=== PATIENT | male | born 1950 | race Caucasian/White ===

== ENCOUNTER 2019-12-16 09:40 | Day surgery (SDC) | payer OTHER ==
[2019-12-13 13:14] LABS: BASOPHILS % (AUTO) 0.5 % (0.0-5.0); EOSINOPHILS % (AUTO) 1.9 % (0.0-8.0); HEMATOCRIT 43.7 % (42-54); LYMPHOCYTES % (AUTO) 26.1 % (21.0-51.0); MEAN CORPUSCULAR HEMOGLOBIN 28.5 pg (27.0-33.0); MEAN CORPUSCULAR HGB CONC 32.5 g/dL (32.0-36.0); MEAN CORPUSCULAR VOLUME 87.6 fL (79-99); MONOCYTES % (AUTO) 8.4 % (3.0-13.0); NEUTROPHILS % (AUTO) 62.9 % (40.0-77.0); PLATELET COUNT (AUTO) 173 K/uL (130-400); RED BLOOD CELL COUNT(AUTO) 4.99 MIL/uL (4.50-6.20); RED CELL DISTRIBUTION WIDTH 13.8 % (11.0-15.5); WHITE BLOOD COUNT (AUTO) 8.6 K/uL (4.8-10.8)
[2019-12-13 13:36] LABS: CREATININE 0.9 mg/dL (0.5-1.5); POTASSIUM 3.9 mmol/L (3.5-5.1)
[2019-12-13 14:35] VITALS: BP 156/80
[2019-12-16] VITALS (17 sets, daily range): BP systolic 100–125; BP diastolic 51–70
[~2019-12-16] VITALS: Ht 172.7 cm; Wt 95.5 kg
[2019-12-16] MEDS: CEFAZOLIN SODIUM 1 GM VIAL IVP SCH ×2 (06:00→14:55)
[~2019-12-16 09:40] MED LIST: ALBU2.5V2 IH; CHOL200016 PO; HYDR-4068 PO; MELO-108 PO; ROPI3TAB5 PO; TRAZ-187 PO; VITA0.4T9 PO
--- NOTE | 2019-12-16 10:04 | NUR ---
CONSULT: NOTIFIED YESIKA STAUFFER OF NPO STATUS: 12/15/19 @ 08:30 6 OUNCES OF COFFEE WITH SUGAR. NO ORDERS GIVEN, OK TO PROCEED WITH SURGERY.
[2019-12-16] MEDS ORDERED: LACTATED RINGERS 1000ML 1,000 ML IV ONE (10:23)
--- NOTE | 2019-12-16 10:25 | NUR ---
POTENTIAL FOR INFECTION: SHAVED RIGHT SHOULDER / RIGHT ARM PER FLASH MICHAELS, FOLLOWED BY WIPING WITH LEESA: 2% CHLORHEXIDINE GLUCONATE CLOTH PATIENTS PRE-OP SKIN PREP.
--- NOTE | 2019-12-16 10:31 | NUR ---
URINARY SYSTEM: PT HAS NEUROGENIC BLADDER. PT SELF CATHS OWN ABOUT 4 - 8 TIMES A DAY.
[2019-12-16] MEDS ORDERED: ASPI-555 PO (10:35)
[2019-12-16] MEDS ORDERED: CYAN250014 PO (10:35)
[2019-12-16] MEDS ORDERED: EPINEPHRINE 1 MG/ML 30ML VIAL IJ ONE (13:38)
[2019-12-16] MEDS ORDERED: LIDOCAINE PF 2% 5ML ABBOJECT ONE ×2 (13:47→17:11)
[2019-12-16] MEDS ORDERED: MIDAZOLAM HCL 1 MG/ML 2ML VIAL ONE (13:47)
[2019-12-16] MEDS ORDERED: PROPOFOL 10 MG/ML 20ML VIAL IV ONE (13:47)
[2019-12-16] MEDS ORDERED: GLYCOPYRROLATE 1 MG/5 ML SYRINGE ONE (13:47)
[2019-12-16] MEDS ORDERED: FENTANYL CITRATE PF 50 MCG/1 ML 2ML VIAL ONE (13:48)
[2019-12-16] MEDS ORDERED: NEOSTIGMINE 5MG/5ML SYR IV ONE (13:48)
[2019-12-16] MEDS ORDERED: ROCURONIUM 10MG/1ML SYR 10 MG/ML ML ONE (13:49)
[2019-12-16] MEDS ORDERED: DEXAMETHASONE SOD PHOSPHATE 10MG/ML 1ML VIAL ONE (14:44)
[2019-12-16] MEDS ORDERED: ONDANSETRON HCL 4 MG/2 ML VIAL ONE (14:44)
[2019-12-16] MEDS ORDERED: EPHEDRINE SULFATE 50 MG/ML AMPULE ONE (15:30)
[2019-12-16] MEDS ORDERED: KETOROLAC TROMETHAMINE 30MG/ML ONE (17:08)
[2019-12-16] MEDS ORDERED: MEPERIDINE-PF 25 MG/ML SYG ONE (17:18)
[2019-12-16] MEDS ORDERED: CEPH500B PO (17:41)
[2019-12-16] MEDS ORDERED: MELO-108 PO (17:46)
[2019-12-16] MEDS ORDERED: IPRATROPIUM/ALBUTEROL SULFATE 3 ML SOLUTION IH ONE (17:58)
--- NOTE | 2019-12-16 18:35 | NUR ---
post received patient from pacu, s/p right shoulder arthroscopy rotator cuff repair, 3 small dressings dry and intact, - opsite dressing intact, swelling to site. arm sling to right arm. neurovascular checks wnl. pt received nerve block to right shoulder. pt able to wiggle his right hand fingers. patient awake and alert, no distress noted. pt denied any pain or discomforts.
--- NOTE | 2019-12-16 19:15 | NUR ---
dc pt dc home via wc,no distress noted. pt denied any pain, sob or any other discomforts. pt accompanied by spouse. dc instructions given to pt spouse with rx x 2 , instructed on dr. delarosa post shoulder dc orders. photo copy of orders provided to both pt/spouse
== END 2019-12-16 19:15 | disposition home or self-care (01) ==
LOC: DAH 09:40
PROVIDERS: ATTEND Orthopaedic Surgery
DX: M75.41 Impingement syndrome of right shoulder (principal); M19.011 Primary osteoarthritis, right shoulder; M25.811 Other specified joint disorders, right shoulder; F17.210 Nicotine dependence, cigarettes, uncomplicated; I10 Essential (primary) hypertension; G89.29 Other chronic pain; E78.2 Mixed hyperlipidemia; M17.12 Unilateral primary osteoarthritis, left knee; Z96.652 Presence of left artificial knee joint; Z98.890 Other specified postprocedural states
CPT/HCPCS: 29824; 29826; 29827; 36415; 64415; 76942; 80048; 85025; 94640; A4213; A4215; A4221; A4222; A4223; A4565; A4600; A4649 ×6; A4930; A5120; A6204; C1713 ×3; G0168; J0171; J0690; J1100; J1885; J2001 ×2; J2175; J2250; J2405; J2704; J2710; J3010; J3490 ×2; J7030; J7120

== ENCOUNTER → 2021-03-19 | Outpatient (CLI) | payer OTHER ==
[~2021-03-19] VITALS: Ht 167.6 cm; Wt 106.9 kg
[~2021-03-19] MED LIST changes: +ASPI-556 PO; +CEFAZOLIN SODIUM 1 GM VIAL IVP SCH; +CEPH500B PO; +CYAN250014 PO; -VITA0.4T9 PO
[2021-03-19 10:01] LABS: BASOPHILS % (AUTO) 0.7 % (0.0-5.0); HEMATOCRIT 44.4 % (42-54); LYMPHOCYTES % (AUTO) 25.1 % (21.0-51.0); MEAN CORPUSCULAR HEMOGLOBIN 28.2 pg (27.0-33.0); MEAN CORPUSCULAR HGB CONC 32.4 g/dL (32.0-36.0); MEAN CORPUSCULAR VOLUME 87.1 fL (79-99); MONOCYTES % (AUTO) 9.8 % (3.0-13.0); NEUTROPHILS % (AUTO) 61.2 % (40.0-77.0); PLATELET COUNT (AUTO) 184 K/uL (130-400); WHITE BLOOD COUNT (AUTO) 8.4 K/uL (4.8-10.8)
[2021-03-19 10:25] LABS: CREATININE 1.1 mg/dL (0.5-1.5); POTASSIUM 4.2 mmol/L (3.5-5.1)
[2021-03-19 12:02] LABS: INR 1.16 (0.85-1.15)
[2021-03-23 14:27] VITALS: BP 116/81
== END | disposition home or self-care (01) ==
LOC: EDSTATUS 09:00 → DAH 10:00 → EDSTATUS 03-24 09:00
PROVIDERS: ATTEND Orthopaedic Surgery
DX: Z01.812 Encounter for preprocedural laboratory examination (principal); Z20.822 Contact with and (suspected) exposure to COVID-19; M24.561 Contracture, right knee; I49.1 Atrial premature depolarization
CPT/HCPCS: 36415; 80048; 85025; 85610; 87641; 93005; U0003

== ENCOUNTER 2021-10-04 11:00 | Inpatient (IN) | payer OTHER ==
[~2021-10-04] VITALS: Ht 170.2 cm; Wt 101.4 kg
[2021-10-04 10:20] LABS: BASOPHILS % (AUTO) 0.7 % (0.0-5.0); EOSINOPHILS % (AUTO) 2.4 % (0.0-8.0); LYMPHOCYTES % (AUTO) 31.8 % (21.0-51.0); MEAN CORPUSCULAR HEMOGLOBIN 28.3 pg (27.0-33.0); MEAN CORPUSCULAR HGB CONC 32.1 g/dL (32.0-36.0); MONOCYTES % (AUTO) 7.6 % (3.0-13.0); NEUTROPHILS % (AUTO) 57.2 % (40.0-77.0); PLATELET COUNT (AUTO) 179 K/uL (130-400); RED BLOOD CELL COUNT(AUTO) 5.34 MIL/uL (4.50-6.20); RED CELL DISTRIBUTION WIDTH 14.3 % (11.0-15.5)
[2021-10-04 10:26] LABS: APPEARANCE,URINE Clear (CLEAR); BILIRUBIN,URINE Negative (NEGATIVE); COLOR,URINE Yellow (YELLOW); GLUCOSE, URINE (UA) Negative (NEGATIVE); KETONES,URINE Negative (NEGATIVE); LEUKOCYTE ESTERASE ,URINE Small (NEGATIVE); NITRATE,URINE Negative (NEGATIVE); OCCULT BLOOD,URINE Negative (NEGATIVE); PROTEIN,URINE Negative (NEGATIVE); UROBILINOGEN,URINE 0.2 mg/dL (0.2-1.0)
[2021-10-04 10:30] LABS: POTASSIUM 4.5 mmol/L (3.5-5.1)
[2021-10-04 10:31] LABS: INR 1.04 (0.85-1.15); PROTHROMBIN TIME 11.3 SEC (9.6-11.6)
[~2021-10-04 11:00] MED LIST changes: -ALBU2.5V2 IH; -ASPI-556 PO; -CEFAZOLIN SODIUM 1 GM VIAL IVP SCH; -CEPH500B PO; -CYAN250014 PO; -HYDR-4068 PO; -MELO-108 PO
[2021-10-04 11:17] LABS: BACTERIA,URINE Moderate /HPF (None Seen); RBC,URINE 0-1 /HPF (0-1); SQUAMOUS EPITHELIAL CELL,UR Rare /HPF (0-2); WBC,URINE 0-1 /HPF (0-1)
[2021-10-04 14:25] VITALS: BP 139/77
[2021-10-05] MEDS ORDERED: VIT1CAPS5 PO (14:19)
[2021-10-05] MEDS ORDERED: MAGN400C PO (14:19)
[2021-10-05] MEDS ORDERED: CARB15DR OP (14:19)
[2021-10-05] MEDS ORDERED: APIX5TAB PO ×2 (14:19)
[2021-10-05] MEDS ORDERED: ALEN70TA80 PO (14:19)
[2021-10-05] MEDS ORDERED: CYCL-309 PO (14:19)
[2021-10-05] MEDS ORDERED: MECL-160 PO (14:19)
[2021-10-05] MEDS ORDERED: ZINC220T4 PO (14:19)
[2021-10-05] MEDS ORDERED: METO75TA PO (14:19)
[2021-10-06] VITALS (16 sets, daily range): BP systolic 117–179; BP diastolic 54–108
[2021-10-06] MEDS ORDERED: CEFAZOLIN SODIUM 1 GM VIAL IVP SCH (06:00)
[2021-10-06] MEDS ORDERED: 0.9%NACL 1000ML 1,000 ML IV ONE (09:14)
[2021-10-06] MEDS ORDERED: GENTAMICIN SULFATE 240 MG in 0.9%NACL 100ML 100 ML IV SCH (09:30)
[2021-10-06] MEDS: CEFAZOLIN SODIUM 1 GM VIAL IVP SCH ×3 (10:00→20:28)
[2021-10-06] MEDS ORDERED: VANCOMYCIN 2GM/500ML NS IV SCH ×2 (10:00)
[2021-10-06] MEDS ORDERED: METO50TA18 PO (11:13)
[2021-10-06] MEDS ORDERED: SUCCINYLCHOLINE CHLORIDE 20 MG/ML 10 ML VIAL ONE (11:28)
[2021-10-06] MEDS ORDERED: LIDOCAINE PF 100MG/5ML (2%) SYRINGE 5ML ONE (11:28)
[2021-10-06] MEDS ORDERED: GLYCOPYRROLATE 1 MG/5 ML SYRINGE ONE (11:29)
[2021-10-06] MEDS ORDERED: DEXAMETHASONE SOD PHOSPHATE 10MG/ML 1ML VIAL ONE (11:29)
[2021-10-06] MEDS ORDERED: ONDANSETRON 4MG INJ ONE (11:30)
[2021-10-06] MEDS ORDERED: PROPOFOL 10 MG/ML 20ML VIAL IV ONE (11:30)
[2021-10-06] MEDS ORDERED: FENTANYL CITRATE PF 50 MCG/1 ML 2ML VIAL ONE (11:30)
[2021-10-06] MEDS ORDERED: NEOSTIGMINE 5MG/5ML SYR IV ONE (11:30)
[2021-10-06] MEDS ORDERED: ROCURONIUM 10MG/1ML SYR 10 MG/ML ML ONE (11:30)
[2021-10-06] MEDS ORDERED: MIDAZOLAM HCL 1 MG/ML 2ML VIAL ONE (11:30)
[2021-10-06] MEDS ORDERED: CELECOXIB 200 MG CAP ONE (12:17)
[2021-10-06] MEDS ORDERED: ACETAMINOPHEN 500 MG TABLET ONE (12:17)
[2021-10-06] MEDS ORDERED: CEFAZOLIN SODIUM 1 GM VIAL ONE (12:57)
[2021-10-06] MEDS ORDERED: CEFAZOLIN SODIUM 1 GM VIAL IRRIG ONE (14:45)
[2021-10-06] MEDS: ACETAMINOPHEN 500 MG TABLET PO SCH ×2 (16:00→20:45)
[2021-10-06] MEDS ORDERED: DiphenhydrAMINE HCL 50 MG/ML VIAL IVP PRN (16:00)
[2021-10-06] MEDS ORDERED: LIDOCAINE HCL-MPF 1% 2ML VIAL IV PRN (16:00)
[2021-10-06] MEDS ORDERED: ONDANSETRON 4MG INJ IVP PRN (16:00)
[2021-10-06] MEDS ORDERED: KCL 20 MEQ ERTAB PO PRN (16:00)
[2021-10-06] MEDS: 0.9%NACL 1000ML 1,000 ML IV SCH ×2 (16:00→20:45)
[2021-10-06] MEDS ORDERED: CALCIUM CARB 500MG PO PRN (16:00)
[2021-10-06] MEDS ORDERED: POTASSIUM CHLORIDE 20MEQ/100ML 100 ML IV PRN (16:00)
[2021-10-06] MEDS ORDERED: KETOROLAC 15MG/ML VIAL (15MG/ML) IV PRN (16:00)
[2021-10-06] MEDS ORDERED: TEMAZEPAM 15 MG CAPSULE PO PRN (16:00)
[2021-10-06] MEDS ORDERED: POTASSIUM CHLORIDE 10% ELIXIR 20 MEQ/15 ML UDCUP PO PRN (16:00)
[2021-10-06] MEDS ORDERED: TRAMADOL HCL 50 MG TABLET PO PRN (16:00)
[2021-10-06] MEDS ORDERED: FERROUS FUMARATE 324 MG TABLET PO PRN (16:00)
[2021-10-06] MEDS ORDERED: MEPERIDINE-PF 25 MG/ML SYG ONE ×2 (16:23→16:45)
[2021-10-06] MEDS: INSULIN HUMULIN R 100 UNIT/ML 3ML SQ SCH ×2 (16:30→20:28)
[2021-10-06] MEDS ORDERED: METOPROLOL TARTRATE 50 MG TAB PO PRN (17:30)
[2021-10-06] MEDS ORDERED: MECLIZINE HCL 25 MG TABLET PO PRN (17:30)
[2021-10-06] MEDS ORDERED: ARTIFICAL TEARS SOL 15 ML OP PRN (17:30)
[2021-10-06] MEDS: FAMOTIDINE 20MG TAB PO SCH (20:28)
[2021-10-06] MEDS: CELECOXIB 200 MG CAP PO SCH (20:28)
[2021-10-06] MEDS: MAGNESIUM OXIDE 400 MG TABLET PO SCH (20:28)
[2021-10-06] MEDS: ROPINIROLE HCL 1 MG TABLET PO SCH (20:28)
[2021-10-06] MEDS: ASPIRIN 81 MG EC TAB PO SCH (20:28)
[2021-10-06] MEDS: PREGABALIN 25 MG CAP PO SCH (20:28)
[2021-10-06] MEDS: VIT C PO SCH (20:29)
[2021-10-06] MEDS: CHOLECALCIFEROL 2000 UNIT PO SCH (20:29)
[2021-10-06] MEDS: COPPER PO SCH (20:29)
[2021-10-06] MEDS: ZINC PO SCH (20:29)
[2021-10-06] MEDS: VIT E PO SCH (20:29)
[2021-10-06] MEDS: METOPROLOL TARTRATE 25 MG TAB PO SCH (20:29)
[2021-10-06] MEDS: VIT A PO SCH (20:29)
[2021-10-06] MEDS: **HM**(Zinc Sulfate (Zinc) 50 MG PO SCH (20:29)
[2021-10-06] MEDS ORDERED: PHARMACY COMMUNICATION MISC SCH (21:30)
[2021-10-07] VITALS (7 sets, daily range): BP systolic 95–115; BP diastolic 45–67
[2021-10-07] MEDS: OXYCODONE HCL 5 MG TAB PO PRN ×4 (01:54→19:29)
[2021-10-07] MEDS: CEFAZOLIN SODIUM 1 GM VIAL IVP SCH (04:24)
[2021-10-07 05:05] LABS: HEMATOCRIT 36.2 % (42-54); MEAN CORPUSCULAR HEMOGLOBIN 28.7 pg (27.0-33.0); MEAN CORPUSCULAR HGB CONC 32.3 g/dL (32.0-36.0); MEAN CORPUSCULAR VOLUME 88.7 fL (79-99); RED BLOOD CELL COUNT(AUTO) 4.08 MIL/uL (4.50-6.20); RED CELL DISTRIBUTION WIDTH 14.1 % (11.0-15.5); WHITE BLOOD COUNT (AUTO) 12.7 K/uL (4.8-10.8)
[2021-10-07 05:28] LABS: CREATININE 1.1 mg/dL (0.5-1.5); POTASSIUM 4.3 mmol/L (3.5-5.1)
[2021-10-07] MEDS: INSULIN HUMULIN R 100 UNIT/ML 3ML SQ SCH ×5 (06:10→20:00)
[2021-10-07] MEDS: CELECOXIB 200 MG CAP PO SCH ×2 (08:09→19:28)
[2021-10-07] MEDS: TAMSULOSIN HCL 0.4 MG CAP.ER.24H PO SCH (08:09)
[2021-10-07] MEDS: ASPIRIN 81 MG EC TAB PO SCH ×2 (08:11→19:28)
[2021-10-07] MEDS: FAMOTIDINE 20MG TAB PO SCH ×2 (08:11→19:28)
[2021-10-07] MEDS: PREGABALIN 25 MG CAP PO SCH ×2 (08:11→19:27)
[2021-10-07] MEDS: METOPROLOL TARTRATE 25 MG TAB PO SCH ×2 (08:12→19:27)
[2021-10-07] MEDS: POLYETHYLENE GLYCOL 3350 17 GM POWD.PACK PO SCH (08:12)
[2021-10-07] MEDS: ZINC PO SCH ×2 (08:19→19:27)
[2021-10-07] MEDS: ACETAMINOPHEN 500 MG TABLET PO SCH ×2 (08:19→16:29)
[2021-10-07] MEDS: VIT E PO SCH ×2 (08:19→19:27)
[2021-10-07] MEDS: VIT C PO SCH ×2 (08:19→19:27)
[2021-10-07] MEDS: COPPER PO SCH ×2 (08:19→19:27)
[2021-10-07] MEDS: VIT A PO SCH ×2 (08:19→19:27)
[2021-10-07] MEDS ORDERED: NITROFURANTOIN MONOHYD/M-CRYST 100 MG CAPSULE PO ONE ×2 (09:46→19:14)
[2021-10-07] MEDS: APIXABAN 5 MG TABLET PO SCH (09:49)
[2021-10-07] MEDS: NITROFURANTOIN MONOHYD/M-CRYST 100 MG CAPSULE PO SCH ×2 (09:50→19:26)
[2021-10-07] MEDS ORDERED: KETOROLAC 30MG VIAL (30MG/ML) ONE (14:52)
[2021-10-07] MEDS: MAGNESIUM OXIDE 400 MG TABLET PO SCH (19:25)
[2021-10-07] MEDS: **HM**(Zinc Sulfate (Zinc) 50 MG PO SCH (19:27)
[2021-10-07] MEDS: CHOLECALCIFEROL 2000 UNIT PO SCH (19:27)
[2021-10-07] MEDS: ROPINIROLE HCL 1 MG TABLET PO SCH (19:28)
[2021-10-08] MEDS: ACETAMINOPHEN 500 MG TABLET PO SCH ×2 (03:53→07:46)
[2021-10-08 04:14] VITALS: BP 126/72
[2021-10-08] MEDS: INSULIN HUMULIN R 100 UNIT/ML 3ML SQ SCH ×2 (05:53→11:27)
[2021-10-08 08:01] VITALS: BP 138/71
[2021-10-08] MEDS: FAMOTIDINE 20MG TAB PO SCH (08:36)
[2021-10-08] MEDS: OXYCODONE HCL 5 MG TAB PO PRN (08:36)
[2021-10-08] MEDS: POLYETHYLENE GLYCOL 3350 17 GM POWD.PACK PO SCH (08:37)
[2021-10-08] MEDS: APIXABAN 5 MG TABLET PO SCH (08:38)
[2021-10-08] MEDS: NITROFURANTOIN MONOHYD/M-CRYST 100 MG CAPSULE PO SCH (08:39)
[2021-10-08] MEDS: CELECOXIB 200 MG CAP PO SCH (08:39)
[2021-10-08] MEDS: ASPIRIN 81 MG EC TAB PO SCH (08:39)
[2021-10-08] MEDS: METOPROLOL TARTRATE 25 MG TAB PO SCH (08:40)
[2021-10-08] MEDS: TAMSULOSIN HCL 0.4 MG CAP.ER.24H PO SCH (08:41)
[2021-10-08] MEDS: PREGABALIN 25 MG CAP PO SCH (08:42)
[2021-10-08] MEDS: VIT A PO SCH (08:45)
[2021-10-08] MEDS: COPPER PO SCH (08:45)
[2021-10-08] MEDS: ZINC PO SCH (08:45)
[2021-10-08] MEDS: VIT C PO SCH (08:45)
[2021-10-08] MEDS: VIT E PO SCH (08:45)
[2021-10-08] MEDS ORDERED: HYDR-4060 PO (09:06)
[2021-10-08] MEDS ORDERED: NITR100C4 PO (09:20)
[2021-10-08] MEDS ORDERED: KETOROLAC 30MG VIAL (30MG/ML) ONE ×2 (09:30→14:53)
[2021-10-08 11:15] VITALS: BP 109/51
[2021-10-09] MEDS ORDERED: BISACODYL 10 MG SUPP.RECT RC PRN (16:00)
== END 2021-10-08 15:56 | disposition home health service (06) | DRG 470 ==
LOC: DAHIP 10-06 08:53 → 4AH 10-06 17:20
PROVIDERS: ADMIT Orthopaedic Surgery; ATTEND Orthopaedic Surgery
PROC: 0SRC0J9 Replacement of Right Knee Joint with Synthetic Substitute, Cemented, Open Approach (ICD-10-PCS; principal; 2021-10-06 14:37)
DX: M17.11 Unilateral primary osteoarthritis, right knee (principal); N39.0 Urinary tract infection, site not specified; G89.29 Other chronic pain; K21.9 Gastro-esophageal reflux disease without esophagitis; Z20.822 Contact with and (suspected) exposure to COVID-19; M54.50 Low back pain, unspecified; N31.9 Neuromuscular dysfunction of bladder, unspecified; I10 Essential (primary) hypertension; E78.5 Hyperlipidemia, unspecified; Z96.652 Presence of left artificial knee joint; Z95.0 Presence of cardiac pacemaker
CPT/HCPCS: 36415; 80048; 81001; 82948; 85025; 85027; 85610; 87077; 87088; 87186; 87635; 87641; 88305; 88311; 97039; G0378; J0330; J0690; J1100; J1580; J1815; J1885; J2001; J2175; J2250; J2405; J2704; J2710; J3010; J3370; J3490; J7030; J7040

== ENCOUNTER 2025-09-11 07:20 | Inpatient (IN) | payer OTHER ==
[2025-09-09 10:52] LABS: IMMATURE GRANULOCYTE ABSOLUTE 0.03 K/uL (0-1); NUCLEATED RED BLOOD CELLS 0.0 % (0.0-0.19); PLATELET COUNT (AUTO) 181 K/uL (130-400); RED BLOOD CELL COUNT(AUTO) 4.97 MIL/uL (4.50-6.20); RED CELL DISTRIBUTION WIDTH 14.1 % (11.0-15.5); WHITE BLOOD COUNT (AUTO) 8.6 K/uL (4.8-10.8)
[2025-09-09 10:57] VITALS: BP 115/64; PULSE 65; RESP 18; TEMP 97.9
[2025-09-09 10:58] LABS: CREATININE 1.0 mg/dL (0.5-1.3); GLOMERULAR FILTR. RATE CALC 79.0 mL/min (>90); GLUCOSE,RANDOM 132.0 mg/dL (70-105); SODIUM SERUM 140.0 mmol/L (136-145); UREA NITROGEN, BLOOD 13.0 mg/dL (7-18)
[2025-09-09 11:01] LABS: INR 1.05 (0.85-1.15)
--- NOTE | 2025-09-09 11:32 | NUR ---
RE: IS INITIAL IS INITIAL TEACHING DINE BY RT WADE DURING PREOP Addendum: 09/09/25 at 1133 by GUERDA STARKEY RN RN DONE KARON ARRIAGA
[2025-09-09 11:42] LABS: APPEARANCE,URINE CLEAR (CLEAR); GLUCOSE, URINE (UA) NEGATIVE (NEGATIVE); LEUKOCYTE ESTERASE ,URINE 500 Leu/uL (NEGATIVE); NITRATE,URINE 2+ (NEGATIVE); OCCULT BLOOD,URINE NEGATIVE (NEGATIVE)
[2025-09-09 11:55] LABS: ADD UA MICROSCOPIC YES
--- NOTE | 2025-09-10 12:18 | NUR ---
RE: LABS REPORTED UA/CX RESULTS AND MRSA RESULTS TO DR RENEE. RECEIVED ORDERS FOR GENTAMICIN 240MG IVP TO BE GIVEN IN OR HOLDING AND FOLLOW STANDING ORDERS IN CHART FOR PATIENT COLONIZED WITH MRSA.
[2025-09-11] VITALS (17 sets, daily range): BP systolic 109–138; BP diastolic 54–74; PULSE 62–98; RESP 15–18; TEMP 97.1–98.1; O2SAT 93–97
[~2025-09-11] VITALS: Ht 170.2 cm; Wt 90.2 kg
[~2025-09-11 07:20] MED LIST changes: +ALBU0.63 IH; +ALEN70TA80 PO; +APIX5TAB PO; +CALC-1125 PO; +CYCL-309 PO; +HYDROCODONE APAP PO; +MAGN250T39 PO; +MECL-302 PO; +METO100T14 PO; +ROPI3TAB21 PO; -ROPI3TAB5 PO; +TRAZ-185 PO; -TRAZ-187 PO; +ZINC220T4 PO
[2025-09-11] MEDS: GENTAmicin SULFate 80 MG/2 ML 240 MG in 0.9%NACL 100ML 100 ML IV SCH (08:21)
[2025-09-11] MEDS: 0.9%NACL 1000ML 1,000 ML IV ONE (08:22)
[2025-09-11] MEDS ORDERED: PROMETHAZINE HCL 25 MG/ML 1ML AMPULE IM PRN (08:30)
[2025-09-11] MEDS: VANCOMYCIN HCL 1.5 GM/250 ML BAG IV ONE (08:32)
[2025-09-11] MEDS ORDERED: LIDOCAINE PF 100MG/5ML (2%) SYRINGE 5ML ONE (09:41)
[2025-09-11] MEDS ORDERED: SUCCINYLCHOLINE CHLORIDE 20 MG/ML 10 ML VIAL ONE (09:41)
[2025-09-11] MEDS ORDERED: GLYCOPYRROLATE 0.2 MG/ML 5 ML VIAL ONE (09:42)
[2025-09-11] MEDS ORDERED: NEOSTIGMINE METHYLSULFATE 1MG/ML IV ONE (09:42)
[2025-09-11] MEDS ORDERED: MIDAZOLAM HCL 1 MG/ML 2ML VIAL ONE (09:45)
[2025-09-11] MEDS: SUGAMMADEX SODIUM 200 MG/2 ML VIAL IV ONE (10:12)
[2025-09-11] MEDS: FAMOTIDINE 20MG VIAL IV ONE (10:13)
[2025-09-11] MEDS: VANCOMYCIN 1G VIAL IV ONE (10:56)
[2025-09-11] MEDS ORDERED: PoTASSium chl 10% ELIXIR 20MEQ 20 MEQ/15 ML UDCUP PO PRN (14:30)
[2025-09-11] MEDS ORDERED: CALCIUM CARB 500MG PO PRN (14:30)
[2025-09-11] MEDS ORDERED: PoTASSium chloRIDE 20MEQ ER 20 MEQ ERTAB PO PRN (14:30)
[2025-09-11] MEDS ORDERED: FE FUMARATE/FA/MV, MIN COMB#15 1 TAB PO PRN (14:30)
--- NOTE | 2025-09-11 14:30 | OP ---
Operative Note: DATE OF PROCEDURE: 09/11/25 SURGEON: NOEMI RENEE MD REVENUE SPECIALIST: [Kathryn Draper and Megan Sanderson, [employer]] ANESTHESIA: [General anesthesia plus regional block] ANESTHESIOLOGIST/FURNITURE FABRICATOR: [Yariel Zamarripa CRNA] PREOPERATIVE DIAGNOSIS: [Left shoulder complete rotator cuff tear, biceps dislocation, atrophy supraspinatus and infraspinatus muscles] POSTOPERATIVE DIAGNOSIS: [Same] IMPLANTS: [By in place shoulder system. Humerus stem size . Humeral cup and insert size 36. Glenosphere size 36 standard. Standard base plate with one central screw and three peripheral locking screws] PROCEDURE: [Reverse left total shoulder arthroplasty] ESTIMATED BLOOD LOSS: [250 mL] INDICATIONS: [The patient is an elderly male with a history of pain to the left shoulder as well as difficulty with range of motion. MRI showed the presence of complete tears of the supra and infraspinatus with atrophy, partial tear of the subscapularis with biceps dislocation. The patient is brought to the operating room for reverse total shoulder arthroplasty that he understood, risks, benefits and possible complications and agreed signed the consent form] DESCRIPTION OF PROCEDURE: [After adequate general anesthesia was achieved and regional block obtained the patient was placed in the beach chair position on the upper extremity was prepped and draped in the usual manner. After identification of the bony landmarks and incision was carried down in the anterior aspect of the shoulder following the deltopectoral line through the skin followed by dissection of the subcutaneous tissue. After identification of the cephalic vein the deltopectoral space was developed and we proceeded to dissect the 2 muscles and retract them to enter into the space identifying the clavipectoral fascia which was incised just lateral to the short head of the biceps and directed superiorly and inferiorly. With the arm in a slight abduction and with a Lazaro retractor elevating the abductor muscle were able to identify the subscapularis tendon and the insertion of the pectoralis muscle at the humerus as well as the circumflex vessels in the inferior border of the subscapularis. The vessels were ligated with two #1 Vicryl stitches at the most lateral aspect of the subscapularis,. The 1 cm superior portion of the pectoralis tendon insertion was cut leaving a small cuff of tendon and we then proceeded to open the long head of the biceps tendon sheath pulling then the tendon and applying to #2 Ethibond sutures through it and then tying it to the pectoralis cuff for a soft tissue tenodesis. The tendon was then cut proximal to this tenodesis and we followed the tendon proximally cutting through the tendon sheath all the way to the bicipital groove removing then the tendon at th is level. At this point we proceeded then to peel of the subscapularis tendon of the lesser tuberosity while at the same time externally rotating the arm exposing the humeral head and proceeded with the dissection all the way to the posterior aspect of the humeral head using the Bovie cautery. A tag suture with #1 Ethibond stitch was applied to the superolateral corner of the subscapularis previous to the detachment. At this point the humeral head was presented through the wound by externally rotating the arm further and extending it. We then proceeded to make a starting hole in the top of the humeral head entering the canal and then we proceeded to ream out to the appropriate size leaving the last reamer in place and then applying the humeral head cutting guide with 40 degree retroversion and after the guide was secured with pins we proceeded to remove the intramedullary reamer and with the use of the oscillating saw we proceeded to remove the humeral head. We then proceeded to use the rasps from the smallest to the chosen diameter obtain an adequate fit leaving the last rasp in place. Then retractors were applied anteriorly and posteriorly inferiorly to the glenoid keeping the arm externally rotated and after the glenoid was exposed we proceeded to remove the remnants of the labrum and we found the center of the glenoid and made a drill hole with a guidepin which stay in place and with the use of the C arm we visualized the position and once satisfied with the placement we proceeded then to reposition the retractors, remove the guidewire, measured the depth of the defect and then we proceeded to use the glenoid reamer to even the surface in a concave shape. After irrigation of the glenoid was completed we then proceeded to apply the baseplate with the 6.5 mm diameter bicortical screw obtaining adequate fixation and new x-rays were obtained to assure that there was adequate contact with the glenoid and once this was corroborated we then proceeded to reapply the retractors and continue the fixation of the baseplate with 4 peripheral 4.5 mm locking screws. We then proceeded to apply the trial glenosphere and then the trial humeral insert and cup and the shoulder was reduced. Range of motion was tested and x-rays were taken once satisfied with the position of the components and the range of motion we proceeded then to remove the trial components. The joint was again irrigated with antibiotic solution and we then placed a final glenosphere and check the position with the C arm. Then we presented the proximal aspect of the humerus and after irrigating the canal we proceeded then to apply to #2 Ethibond sutures in a looped fashion through the anterior rim of the bone of the humerus and after this was completed we then proceeded to insert the final humeral stem followed by application of the humeral cup and insert. We then reduced the shoulder joint and repaired the subscapularis muscle back to the lesser tuberosity passing each end of the #2 Ethibond sutures through the tendon and then threaded them through the loops and tied them to themselves providing adequate reattachment. At this point we checked again the range of motion, stability and final x-rays were taken. A drain was placed through separate stab incision and we proceeded then to close the wound with reapproximation of the deltopectoral interval with #1 Vicryl simple stitches followed by closure of the subcutaneous tissue with 2-0 Monocryl inverted stitches and the skin was closed with running stitch with 3-0 Monocryl subcuticularly.. Dermabond was applied to cover the incision and then Telfa dressing was applied to cover it and OpSite was then finally applied to cover the Telfa dressing. The drain was connected to the reservoir and the exit of the drain was covered with a Telfa dressing and an OpSite. The drapes were then removed, the patient was placed in an arm sling and then placed in the supine position and transferred to a hospital bed and taken to recovery room for follow-up by anesthesia. There were no complications during the procedure. ] NOEMI RENEE MD Sep 11, 2025 14:30
[2025-09-11] MEDS: 0.9%NACL 1000ML 1,000 ML IV SCH (17:12)
[2025-09-11] MEDS: VANCOMYCIN 1G/250ML KIT 250 ML IV SCH (23:12)
[2025-09-12] VITALS (8 sets, daily range): BP systolic 105–135; BP diastolic 60–71; PULSE 58–78; RESP 17–20; TEMP 97.3–98.3; O2SAT 95–97
[2025-09-12] MEDS ORDERED: CYCLOBENZAPRINE HCL 10 MG TABLET PO PRN (01:30)
[2025-09-12] MEDS ORDERED: ALBUTEROL 0.083% 2.5 MG/3 ML INH IH PRN (02:00)
[2025-09-12 04:28] LABS: NUCLEATED RED BLOOD CELLS 0.0 % (0.0-0.19); PLATELET COUNT (AUTO) 174.0 K/uL (130-400); RED BLOOD CELL COUNT(AUTO) 4.31 MIL/uL (4.50-6.20); RED CELL DISTRIBUTION WIDTH 13.8 % (11.0-15.5); WHITE BLOOD COUNT (AUTO) 14.3 K/uL (4.8-10.8)
[2025-09-12 04:48] LABS: CREATININE 1.1 mg/dL (0.5-1.3); GLOMERULAR FILTR. RATE CALC 70.0 mL/min (>90); GLUCOSE,RANDOM 135.0 mg/dL (70-105); SODIUM SERUM 138.0 mmol/L (136-145); UREA NITROGEN, BLOOD 14.0 mg/dL (7-18)
--- NOTE | 2025-09-12 08:05 | PN ---
Ortho postop day one. This morning the patient is awake alert and oriented. He is reporting adequate pain control. The is at the bedside. Patient is stating that he is eager to leave home we would like to be considered for outpatient physical therapy. States he would like to be considered a go home today. His vital signs have remained stable. Afebrile. He is voiding and already has had a bowel movement today. Laboratory results reviewed. Noted to have a drop in hemoglobin and hematocrit as expected after reverse shoulder arthroplasty. The dressing is intact. Distal neurovascular exam intact. Able to make a full composite fist on command and has full range of motion of the wrist. Hemovac dressing overnight produced 220 mL. After reviewing medications the aspirin twice a day we will be DC he had and he will continue on Eliquis twice a day. Operative findings discussed with the patient. Reinforced incentive spirometry. He is pending physical therapy. Anticipated discharge plan is home with outpatient physical therapy. Assessment: Status post left reverse shoulder arthroplasty. Acute postoperative blood loss anemia. Plan: Continue with Dr. Tuttle protocol and discharge planning. Acute postoperative blood loss anemia addressed per protocol as necessary Vitals/Labs Vital Signs Date Time Temp Pulse Resp B/P (MAP) Pulse Ox O2 Delivery O2 Flow Rate FiO2 09/12/25 07:45 98.1 58 17 110/60 91 Room Air 09/11/25 20:18 0 21 Laboratory Tests 09/12/25 04:07 Medications Current Medications Gentamicin Sulfate 1 each ONCALL ONCE IV; Start 09/11/25 at 06:30; Stop 09/10/25 at 12:37; Status DC Gentamicin Sulfate 240 mg/ Sodium Chloride 100 ml @ 200 mls/hr ONCALL IV Last administered on 09/11/25at 08:21; Start 09/11/25 at 06:30; Stop 09/11/25 at 10:00; Status DC Cefazolin Sodium 2 gm STK-MED ONCE .ROUTE; Start 09/11/25 at 07:47; Stop 09/11/25 at 07:47; Status DC Sodium Chloride 1,000 ml @ As Directed STK-MED ONCE IV Last administered on 09/11/25at 08:22; Start 09/11/25 at 07:47; Stop 09/11/25 at 07:48; Status DC Vancomycin HCl 1.5 gm ONCE ONCE IV Last administered on 09/11/25at 08:32; Start 09/11/25 at 08:30; Stop 09/11/25 at 08:31; Status DC Ondansetron HCl 4 mg AD PRN IVP; Start 09/11/25 at 08:30; Stop 09/11/25 at 15:53; Status DC Metoclopramide HCl 10 mg AD PRN IVP; Start 09/11/25 at 08:30; Stop 09/11/25 at 15:53; Status DC Promethazine HCl 25 mg AD PRN IM; Start 09/11/25 at 08:30; Stop 09/11/25 at 15:53; Status DC Ketorolac Tromethamine 15 mg AD PRN IV; Start 09/11/25 at 08:30 Morphine Sulfate 2 mg AD PRN IVP; Start 09/11/25 at 08:30; Stop 09/11/25 at 15:53; Status DC Fentanyl Citrate 25 mcg Q5MIN PRN IVP; Start 09/11/25 at 08:30; Stop 09/11/25 at 15:53; Status DC Lidocaine HCl 100 mg STK-MED ONCE .ROUTE; Start 09/11/25 at 09:41; Stop 09/11/25 at 09:41; Status DC Ondansetron HCl 4 mg STK-MED ONCE .ROUTE; Start 09/11/25 at 09:41; Stop 09/11/25 at 09:41; Status DC Succinylcholine Chloride 200 mg STK-MED ONCE .ROUTE; Start 09/11/25 at 09:41; Stop 09/11/25 at 09:41; Status DC Propofol 200 mg STK-MED ONCE IV; Start 09/11/25 at 09:42; Stop 09/11/25 at 09:41; Status DC Dexamethasone Sodium Phosphate 10 mg STK-MED ONCE .ROUTE; Start 09/11/25 at 09:42; Stop 09/11/25 at 09:42; Status DC Glycopyrrolate 1 mg STK-MED ONCE .ROUTE; Start 09/11/25 at 09:42; Stop 09/11/25 at 09:42; Status DC Neostigmine Methylsulfate 10 mg STK-MED ONCE IV; Start 09/11/25 at 09:42; Stop 09/11/25 at 09:42; Status DC Fentanyl Citrate 100 mcg STK-MED ONCE .ROUTE; Start 09/11/25 at 09:42; Stop 09/11/25 at 09:42; Status DC Rocuronium Bertrand 50 mg STK-MED ONCE .ROUTE; Start 09/11/25 at 09:42; Stop 09/11/25 at 09:42; Status DC Ketamine HCl 50 mg STK-MED ONCE .ROUTE; Start 09/11/25 at 09:43; Stop 09/11/25 at 09:43; Status DC Midazolam HCl 2 mg STK-MED ONCE .ROUTE; Start 09/11/25 at 09:45; Stop 09/11/25 at 09:45; Status DC Acetaminophen 100 ml @ As Directed STK-MED ONCE .ROUTE; Start 09/11/25 at 10:12; Stop 09/11/25 at 10:12; Status DC Famotidine 20 mg STK-MED ONCE IV; Start 09/11/25 at 10:13; Stop 09/11/25 at 10:13; Status DC Phenylephrine HCl 10 mg STK-MED ONCE IV; Start 09/11/25 at 10:18; Stop 09/11/25 at 10:18; Status DC Vancomycin HCl 1 gm STK-MED ONCE IV Last administered on 09/11/25at 10:56; Start 09/11/25 at 10:56; Stop 09/11/25 at 11:40; Status DC Cefazolin Sodium 1 gm STK-MED ONCE .ROUTE; Start 09/11/25 at 13:47; Stop 09/11/25 at 13:48; Status DC Fentanyl Citrate 100 mcg STK-MED ONCE .ROUTE; Start 09/11/25 at 14:02; Stop 09/11/25 at 14:02; Status DC Sodium Chloride 1,000 ml @ 100 mls/hr Q10H IV Last administered on 09/11/25at 17:12; Start 09/11/25 at 14:30; Stop 09/12/25 at 14:29 Polyethylene Glycol 17 gm DAILY PO; Start 09/12/25 at 09:00; Stop 10/12/25 at 08:59 Bisacodyl 10 mg DAILY PRN RC; Start 09/14/25 at 14:30; Stop 10/14/25 at 14:29 Vancomycin HCl 250 ml @ 125 mls/hr Q12H IV Last administered on 09/11/25at 23:12; Start 09/11/25 at 20:30; Stop 09/12/25 at 10:29 Aspirin 325 mg BID PO; Start 09/12/25 at 09:00; Stop 09/12/25 at 07:48; Status DC Ketorolac Tromethamine 15 mg Q6H PRN IV; Start 09/11/25 at 14:30; Stop 09/16/25 at 14:29 Multivitamins/Iron 1 tab DAILY PRN PO; Start 09/11/25 at 14:30; Stop 10/11/25 at 14:29 Ondansetron HCl 4 mg Q6H PRN IVP; Start 09/11/25 at 14:30; Stop 10/11/25 at 14:29 Calcium Carbonate 500 mg Q12H PRN PO; Start 09/11/25 at 14:30; Stop 10/11/25 at 14:29 Diphenhydramine HCl 25 mg Q6H PRN IVP; Start 09/11/25 at 14:30; Stop 10/11/25 at 14:29 Insulin Human Regular INSULIN SLIDING SCAL... ACHS SQ; Start 09/11/25 at 16:30; Stop 10/11/25 at 16:29 Cefazolin Sodium 2 gm Q8H IVPB Last administered on 09/12/25at 03:35; Start 09/11/25 at 19:30; Stop 09/12/25 at 03:32; Status DC Docusate Sodium 100 mg BID PO Last administered on 09/11/25at 21:45; Start 09/11/25 at 21:00; Stop 10/11/25 at 20:59 Potassium Chloride 100 ml @ 100 mls/hr AD PRN IV; Start 09/11/25 at 14:30; Stop 10/11/25 at 14:29 Potassium Chloride 20 meq AD PRN PO; Start 09/11/25 at 14:30; Stop 10/11/25 at 14:29 Potassium Chloride 20 meq AD PRN PO; Start 09/11/25 at 14:30; Stop 10/11/25 at 14:29 Celecoxib 200 mg BID PO Last administered on 09/11/25at 21:45; Start 09/11/25 at 21:00; Stop 10/11/25 at 20:59 Pregabalin 50 mg BID PO Last administered on 09/11/25at 21:44; Start 09/11/25 at 21:00; Stop 10/11/25 at 20:59 Oxycodone HCl 5 mg Q4H PRN PO; Start 09/11/25 at 14:30; Stop 09/18/25 at 14:29 Oxycodone HCl 10 mg Q4H PRN PO; Start 09/11/25 at 14:30; Stop 09/18/25 at 14:29 Tramadol HCl 50 mg Q6H PRN PO; Start 09/11/25 at 14:30; Stop 09/16/25 at 14:29 Acetaminophen 1,000 mg Q8H PO Last administered on 09/12/25at 06:29; Start 09/11/25 at 14:30; Stop 10/11/25 at 14:29 Trazodone HCl 25 mg PM PO Last administered on 09/11/25at 21:48; Start 09/11/25 at 21:00; Stop 10/11/25 at 20:59 Metoprolol Tartrate 100 mg BID PO Last administered on 09/11/25at 21:45; Start 09/11/25 at 21:00; Stop 10/11/25 at 20:59 Apixaban 5 mg BID PO; Start 09/12/25 at 09:00; Stop 10/12/25 at 08:59 Cyclobenzaprine HCl 10 mg HS PRN PO; Start 09/12/25 at 01:30; Stop 10/12/25 at 01:29 Albuterol Sulfate 2.5 mg [id number] PRN IH; Start 09/12/25 at 02:00; Stop 10/12/25 at 01:59 Miscellaneous Medication 600 mg DAILY PO; Start 09/12/25 at 09:00; Stop 09/12/25 at 01:31; Status DC Home Med DAILY PO; Start 09/12/25 at 09:00; Stop 10/12/25 at 08:59 Ropinirole HCl 3 mg BID PO; Start 09/12/25 at 09:00; Stop 10/12/25 at 08:59 GRACE BARRIENTOS Sep 12, 2025 08:05
--- NOTE | 2025-09-12 08:33 | NUR ---
SANTINO Tamayo in facility, new order to DC Aspirin. Medication was DC by this nurse.
[2025-09-12] MEDS ORDERED: ASPIRIN 325MG TAB PO SCH (09:00)
[2025-09-12] MEDS ORDERED: NON-FORMULARY MEDICATION 1 EACH (Calcium Carbonate (Calcium) 600 MG) PO SCH (09:00)
--- NOTE | 2025-09-12 10:30 | NUR ---
SPOKE BRIEFLY TO PATIENT &SPOUSE IN ROOM ADVISED HIM THAT I W[facility]
--- NOTE | 2025-09-12 11:45 | NUR ---
REFERRAL SENT TO [facility] AND SPOKE TO ADDIS
--- NOTE | 2025-09-12 13:00 | NUR ---
SPOKE TO AD[facility] AT [facility]. ADDIS VERY CONFUSED ABOUT ORDER. DID NOT GET WHOLE PACKET. SHE STATED THAT THE LINE ABOUT [facility] WAS SMUDGED OUT, PAGES CUT OFF, COULD I PLEASE RE SEND RE FAXED ORDER
--- NOTE | 2025-09-12 15:00 | NUR ---
REFAXED PACKET AGAIN., ADDIS STATED DID NOT RECIEVE STATED WOULD WORK ON IT NOW.
--- NOTE | 2025-09-12 16:30 | NUR ---
MULTIPLE CALLS TO [facility] WITHOUT RESPONSE. NO AUTH REC'ED FOR HH/PT
[2025-09-13] VITALS (7 sets, daily range): BP systolic 92–153; BP diastolic 52–73; PULSE 49–71; RESP 17–20; TEMP 97.5–98.6; O2SAT 97
--- NOTE | 2025-09-13 10:55 | NUR ---
ADVISED BY SPOUSE THAT [facility] CALL[facility] YESTERDAY AFTERNOON TO SAY THAT THE REFERRAL HAD BEEN REC'D BUT WOULD PROBABLY NOT GET AUTHORIZED UNTIL MONDAY, BUT THAT IT WOULD GET APPROVED AND PATIENT WAS OK TO GO HOME IF OK WITH MD. SPOUSE STATES THAT PTX HERE TAUGHT HIM THE MOVEMENTS THAT WOULD BE BENEFICIAL FOR HIM TO DO UNTIL OTx CAME TO THEIR HOME. SOPKE WITH DR. RENEE; [facility] WOULD BE DISCHARGED TODAY AND CM COULD RELAY THE HH INFO TO PATIENT ON MONDAY. DRAIN STILL IN PLACE, TO BE REMOVED TODAY
[2025-09-13] MEDS ORDERED: LEVO-70 PO (11:49)
[2025-09-13] MEDS ORDERED: OXYC-38 PO (11:49)
--- NOTE | 2025-09-13 11:56 | DS ---
DISCHARGE SUMMARY [Date of admission: 09/11/2025 Date of discharge: 09/13/2025 Final diagnosis: Left Shoulder complete rotator cuff tear, osteoarthritis. Urinary tract infection on admission Surgical procedures: Reverse left total shoulder arthroplasty on 09/11/2025 Summary of History and Physical: The patient is a 75 year-old male with history of left shoulder pain secondary a chronic complete rotator cuff tear with the atrophy as well as restricted range of motion to that has been present for several years and has been treated conservatively with no longer adequate response to treatment. The patient is being admitted for a reverse total shoulder arthroplasty. Previous medical history: Neuromuscular dysfunction of bladder, chronic low back pain, history of chest pain and shortness of breath, mixed hyperlipidemia, conductive hearing loss bilaterally, hypertension, osteoarthritis, GERD, heart disease, diabetes mellitus, Chronic obstructive pulmonary disease Previous surgical history: Right foot surgery, left partial knee replacement, left wrist surgery, appendectomy, tonsillectomy, pacemaker placement, right shoulder arthroscopy, right total knee arthroplasty. Family history: Heart disease, hypertension, diabetes Social history: Negative for use of tobacco or alcohol. Allergies: NKDA. Review of system: Negative on admission Hospital course: The patient was admitted and taken to the operating room for a reverse left shoulder arthroplasty, procedure that went uneventful. Laboratory admission revealed that the patient had a urinary tract infection from which he was asymptomatic and received preoperative antibiotic treatment. The culture came back positive for Klebsiella pneumoniae with a was sensitive to all antibiotics and continue treatment while in the hospital with oral medication. Postoperatively the patient remained hemodynamically stable and afebrile. The patient received antibiotic and anticoagulation prophylaxis as per protocol. The patient was evaluated by physical therapy and started rehabilitation treatment with gentle range of motion exercises to the shoulder. The patient was also evaluated by case management and arrangements were made for discharge. The patient tolerated diet well. On postop day #2 all the arrangements were completed. The drain was removed, and the patient was dismissed. Condition on discharge: Good Disposition: The patient will be dismissed home with home health. Follow-up will be done at the office in 3 weeks. The patient is to continue with therapy and rehabilitation at home. Continue taking pain medication as instructed as well as home medications as instructed and continue with pre admission diet.] NOEMI RENEE MD Sep 13, 2025 11:56
--- NOTE | 2025-09-13 12:00 | NUR ---
Dr. Tuttle in facillity to assess resident current condition. per MD. Order to DC home with HH. Humovac drain was removed by . DC instructions given to resident.
--- NOTE | 2025-09-13 13:50 | NUR ---
Patient was DC at this time. at bedside, head to toe assessment was performed, resident skin condition intact. Quirino pain or discomfort. Medication reconciliation was done, Dc instructions were given to patient.
== END 2025-09-13 14:18 | disposition home health service (06) | DRG 483 ==
LOC: DAH 07:20 → DAHIP 07:21 → OBSVTOIN 07:21 → 4DH 15:40
PROVIDERS: ADMIT Orthopaedic Surgery; ATTEND Orthopaedic Surgery
PROC: 0RRK00Z Replacement of Left Shoulder Joint with Reverse Ball and Socket Synthetic Substitute, Open Approach (ICD-10-PCS; principal; 2025-09-11 10:45)
DX: M75.122 Complete rotator cuff tear or rupture of left shoulder, not specified as traumatic (principal); N39.0 Urinary tract infection, site not specified; D62 Acute posthemorrhagic anemia; E11.9 Type 2 diabetes mellitus without complications; E78.2 Mixed hyperlipidemia; I10 Essential (primary) hypertension; J44.9 Chronic obstructive pulmonary disease, unspecified; Z96.651 Presence of right artificial knee joint; H91.93 Unspecified hearing loss, bilateral; B96.1 Klebsiella pneumoniae [K. pneumoniae] as the cause of diseases classified elsewhere; Z83.3 Family history of diabetes mellitus; Z82.49 Family history of ischemic heart disease and other diseases of the circulatory system; Z95.0 Presence of cardiac pacemaker
CPT/HCPCS: 36415; 73030; 80048; 81001; 82948; 85025; 85027; 85610; 87086; 87186; 87641; 96365; G0378; J0330; J0690; J1100; J1580; J1815; J1885; J2003; J2250; J2371; J2405; J2704; J2710; J3010; J3373; J3490; J7030; A4213; A4215; A4216; A4221; A4222; A4223; A4649; A4663; A6204; C1713; C1768; C1776; J1308; J3375